=== PATIENT | female | born 1945 | race Caucasian/White ===

== ENCOUNTER 2016-09-21 09:10 | Emergency (ER) | payer MEDICARE, OTHER ==
[2016-09-21] MEDS ORDERED: Ondansetron INJ* 2 MG/ML VIAL IV ONE (09:16)
[2016-09-21] MEDS ORDERED: NS 0.9% 1000 ML* 1,000 ML IV ONE (09:16)
[2016-09-21] MEDS ORDERED: Morphine INJ* 4 MG/ML 1 ML SYRINGE IV ONE (09:55)
[2016-09-21 10:06] LABS: Hematocrit 45 % (35-47); Hemoglobin 15.1 g/dl (12.0-16.0); Mean Corpuscular HGB Conc 34 g/dl (31-36); Mean Corpuscular Hemoglobin 31 pg (27-31); Mean Corpuscular Volume 91 fL (80-97); Mean Platelet Volume 7 um3 (7.4-10.4); Red Blood Count 4.95 10^6/ul (4.0-5.4); Red Cell Distribution Width 14 % (10.5-15); White Blood Count 3.5 10^3/ul (3.5-10.8)
[2016-09-21 10:36] LABS: BUN/Creatinine Ratio 8.5 (8-20); C Reactive Protein 1.3 mg/L (< 5.00); Calcium 9.2 mg/dL (8.6-10.3); EGFR African American 46.8 (>60); EGFR Non-African American 36.4 (>60); Globulin 3.4 g/dL (2-4); Potassium 4.1 mmol/L (3.5-5.0); Total Bilirubin 0.9 mg/dL (0.2-1.0); Total Protein 7.4 g/dL (6.4-8.9)
[2016-09-21] MEDS ORDERED: Iodixanol* (CONTRAST) 320 MG/ML 100 ML SDV IV ONE (10:48)
[2016-09-21 11:20] LABS: Urine Bilirubin Negative (Negative); Urine Glucose Negative (Negative); Urine Nitrite Negative (Negative)
--- NOTE | 2016-09-21 12:16 | RAD ---
Indication: Abdominal pain, chest pain. Contrast: Administered 73.9 ml of VISAPAQUE 320 mgi/ml CTA of the chest was performed after IV contrast administration. CT of the abdomen and pelvis was performed after oral and IV contrast administration. Coronal and sagittal reconstructed images were obtained. The pulmonary arterial tree is well opacified. There are no filling defects present to suggest pulmonary embolus. The aorta demonstrates no evidence of aortic dissection. There is no mediastinal or hilar adenopathy. The trachea and major bronchi appear patent. Lung hood demonstrate no pleural fluid, nodules or masses. No alveolar consolidation is noted. CT of the abdomen and pelvis demonstrates liver to be normal in size. Low density lesion in the medial segment of left lobe of liver measures up to 21 mm. Additional cyst is noted in the medial segment of left lobe of liver measuring 14 mm. Gallbladder demonstrates no evidence of gallstones, pericholecystic fluid or wall thickening. No intrahepatic duct dilatation is noted. The spleen is normal in size. There is wall thickening of the antrum of the stomach. There is prominent gastroesophageal junction noted. Correlation with dysphasia and the possibility of antral gastritis should BE considered. No adrenal masses are noted. The kidneys demonstrate symmetric nephrograms without evidence of focal lesions. No retroperitoneal lymphadenopathy is noted. Splenic artery calcifications are noted. No dilated loops of bowel are noted. The colon is filled with stool. CT of the pelvis demonstrates urinary bladder to be unremarkable. No pelvic adenopathy is noted. No aneurysmal dilatation is noted. No hernias are identified. IMPRESSION: No evidence of pulmonary embolus. No evidence of aortic dissection is noted. Cysts are noted in the left lobe of liver. Wall thickening of the gastric antrum as well as the gastroesophageal junction. Possibility of esophagitis antral gastritis should BE considered.
--- NOTE | 2016-09-21 12:33 | ED ---
Fatou Palacios Edward, scribed for Urszula Olivas MD on 09/21/16 at 0933 . HPI Chest Pain - HPI Summary HPI Summary: 71 y/o female presents to ED c/o CP starting 2-3 days ago and general not feeling well for a few weeks after being dx with a UTI. The CP is located in the mid sternal region rated at a 6/10 at triage described as a squeezing pain. The pain is not aggravated with deep breaths. She also c/o diffuse ABD pain. Associated sx: N/V and a productive cough, starting after the UTI dx. Denies dysuria. PMHx lyme disease, UTI (few weeks ago), blood clots. FHx HTN. Shx appy. No previous MO's or strokes. Past medications reviewed on visit. - History of Current Complaint Chief Complaint: EDChestPainROMI Hx Obtained From: Patient Onset/Duration: Started Days Ago Timing: Constant Initial Severity: Moderate Current Severity: Moderate Pain Intensity: 6 Pain Scale Used: 0-10 Numeric Chest Pain Location: Mid Sternal Character: Pressure/Squeezing Associated Signs and Symptoms: Positive: Chest Pain, Nausea, Productive Cough, Abdominal Pain, Vomiting, Other: - Denies dysuria - Additional Pertinent History Primary Care Physician: [id number] - Allergy/Home Medications Allergies/Adverse Reactions: Allergies Allergy/AdvReac Type Severity Reaction Status Date / Time Amoxicillin Allergy Unknown Unknown Verified 06/04/15 09:48 Reaction Details Venlafaxine [From Effexor] AdvReac Intermediate Muscle Ache Verified 06/04/15 09 :49 Home Medications: Home Medications Calcium Citrate TAB* [Citracal TAB*] 200 mg PO BID 09/21/16 [History Confirmed 09/21/16] Donepezil TAB* [Aricept 5 MG TAB*] 10 mg PO QPM 09/21/16 [History Confirmed ] Esomeprazole(NF) [NexIUM(NF)] 40 mg PO DAILY 09/21/16 [History Confirmed ] Losartan TAB* [Cozaar TAB*] 50 mg PO DAILY 09/21/16 [History Confirmed 09/21/16] Pravastatin (NF) [Pravachol (NF)] 40 mg PO QPM 09/21/16 [History Confirmed 09/21] PMH/Surg Hx/FS Hx/Imm Hx Previously Healthy: No Endocrine/Hematology History: Denies: Hx Diabetes, Hx Systemic Lupus Erythematosus Cardiovascular History: Reports: Hx Hypertension Denies: Hx Congestive Heart Failure, Hx Pacemaker/ICD Respiratory History: Denies: Hx Asthma History: Denies: Hx Dialysis, Hx Renal Disease Musculoskeletal History: Reports: Hx Fibromyalgia - states "I had fibromyalgia but it went away" Denies: Hx Rheumatoid Arthritis, Hx Osteoporosis Sensory History: Denies: Hx Hearing Aid Neurological History: Reports: Hx Dementia Psychiatric History: Denies: Hx Panic Disorder - Cancer History Hx Chemotherapy: No Hx Radiation Therapy: No - Surgical History Surgery Procedure, Year, and Place: hysterectomy, appendectomy, colon resection Infectious Disease History: Denies: Traveled Outside the [place] in Last 30 Days - Family History Known Family History: Positive: Other - Father - stroke. Mother - colon CA - Social History Occupation: Retired Lives: With Family - With Alcohol Use: unknown Hx Substance Use: No Substance Use Type: Reports: None Hx Tobacco Use: Yes - ?YRS AGO Smoking Status (MU): Former Smoker Review of Systems Constitutional: Negative Eyes: Negative ENT: Negative Positive: Chest Pain Positive: Cough - Productive Positive: Abdominal Pain, Vomiting, Nausea Genitourinary: Negative Negative: dysuria Musculoskeletal: Negative Skin: Negative Neurological: Negative Psychological: Normal All Other Systems Reviewed And Are Negative: Yes Physical Exam Triage Information Reviewed: Yes Vital Signs On Initial Exam: Initial Vitals Temp Pulse Resp BP Pulse Ox 98.6 F 68 20 110/82 100 09/21/16 09:15 09/21/16 09:15 09/21/16 09:15 09/21/16 09:15 09/21/16 09:15 Vital Signs Reviewed: Yes Appearance: Positive: No Pain Distress, Ill-Appearing - Mildly Skin: Positive: Warm, Skin Color Reflects Adequate Perfusion, Dry Eyes: Positive: EOMI, SUSANA ENT: Positive: Pharynx normal, TMs normal, Other - Mucous membranes dry Neck: Positive: Supple, Nontender Respiratory/Lung Sounds: Positive: Clear to Auscultation, Breath Sounds Present. Negative: Rales, Rhonchi, Wheezes Cardiovascular: Positive: RRR, Other - No gallop. Negative: Murmur, Rub Abdomen Description: Positive: Soft, Other: - Mild epigastric pain. No rebound. Negative: Distended, Guarding Bowel Sounds: Positive: Present Musculoskeletal: Positive: Strength/ROM Intact. Negative: Edema Left, Edema Right Neurological: Positive: Sensory/Motor Intact, Alert, Oriented to Person Place, Time, CN Intact II-III Psychiatric: Positive: Affect/Mood Appropriate Diagnostics - Vital Signs Vital Signs Temp Pulse Resp BP Pulse Ox 09/21/16 09:15 98.6 F 68 20 110/82 100 - Laboratory Lab Results: Lab Results 09/21/16 09/21/16 09/21/16 Range/Units 09:55 09:55 09:55 WBC 3.5 (3.5-10.8) 10^3/ul RBC 4.95 (4.0-5.4) 10^6/ul Hgb 15.1 (12.0-16.0) g/dl Hct 45 (35-47) % MCV 91 (80-97) fL MCH 31 (27-31) pg MCHC 34 (31-36) g/dl RDW 14 (10.5-15) % Plt Count 149 L (150-450) 10^3/ul MPV 7 L (7.4-10.4) um3 Neut % (Auto) 64.6 (38-83) % Lymph % (Auto) 24.1 L (25-47) % Carbon % (Auto) 9.2 H (1-9) % Eos % (Auto) 1.4 (0-6) % Baso % (Auto) 0.7 (0-2) % Absolute Neuts (auto) 2.3 (1.5-7.7) 10^3/ul Absolute Lymphs (auto) 0.9 L (1.0-4.8) 10^3/ul Absolute Monos (auto) 0.3 (0-0.8) 10^3/ul Absolute Eos (auto) 0.1 (0-0.6) 10^3/ul Absolute Basos (auto) 0 (0-0.2) 10^3/ul Absolute Nucleated RBC 0.01 10^3/ul Nucleated RBC % 0.3 Sodium 131 L (133-145) mmol/L Potassium 4.1 (3.5-5.0) mmol/L Chloride 97 L (101-111) mmol/L Carbon Dioxide 27 (22-32) mmol/L Anion Gap 7 (2-11) mmol/L BUN 12 (6-24) mg/dL Creatinine 1.42 H (0.51-0.95) mg/dL Est GFR ( Amer) 46.8 (>60) Est GFR (Non-Af Amer) 36.4 (>60) BUN/Creatinine Ratio 8.5 (8-20) Glucose 98 (70-100) mg/dL Lactic Acid 1.1 (0.5-2.0) mmol/L Calcium 9.2 (8.6-10.3) mg/dL Magnesium 2.0 (1.9-2.7) mg/dL Total Bilirubin 0.90 (0.2-1.0) mg/dL AST 30 (13-39) U/L ALT 21 (7-52) U/L Alkaline Phosphatase 111 H (34-104) U/L Troponin I 0.00 (<0.04) ng/mL C-Reactive Protein 1.30 (< 5.00) mg/L Total Protein 7.4 (6.4-8.9) g/dL Albumin 4.0 (3.2-5.2) g/dL Globulin 3.4 (2-4) g/dL Albumin/Globulin Ratio 1.2 (1-3) Lipase 58 (11.0-82.0) U/L Urine Color Urine Appearance Urine pH (5-9) Ur Specific [place] (1.010-1.030) Urine Protein (Negative) Urine Ketones (Negative) Urine Blood (Negative) Urine Nitrate (Negative) Urine Bilirubin (Negative) Urine Urobilinogen (Negative) Ur Leukocyte Esterase (Negative) Urine Glucose (Negative) 09/21/16 Range/Units 10:08 WBC (3.5-10.8) 10^3/ul RBC (4.0-5.4) 10^6/ul Hgb (12.0-16.0) g/dl Hct (35-47) % MCV (80-97) fL MCH (27-31) pg MCHC (31-36) g/dl RDW (10.5-15) % Plt Count (150-450) 10^3/ul MPV (7.4-10.4) um3 Neut % (Auto) (38-83) % Lymph % (Auto) (25-47) % Carbon % (Auto) (1-9) % Eos % (Auto) (0-6) % Baso % (Auto) (0-2) % Absolute Neuts (auto) (1.5-7.7) 10^3/ul Absolute Lymphs (auto) (1.0-4.8) 10^3/ul Absolute Monos (auto) (0-0.8) 10^3/ul Absolute Eos (auto) (0-0.6) 10^3/ul Absolute Basos (auto) (0-0.2) 10^3/ul Absolute Nucleated RBC 10^3/ul Nucleated RBC % Sodium (133-145) mmol/L Potassium (3.5-5.0) mmol/L Chloride (101-111) mmol/L Carbon Dioxide (22-32) mmol/L Anion Gap (2-11) mmol/L BUN (6-24) mg/dL Creatinine (0.51-0.95) mg/dL Est GFR ( Amer) (>60) Est GFR (Non-Af Amer) (>60) BUN/Creatinine Ratio (8-20) Glucose (70-100) mg/dL Lactic Acid (0.5-2.0) mmol/L Calcium (8.6-10.3) mg/dL Magnesium (1.9-2.7) mg/dL Total Bilirubin (0.2-1.0) mg/dL AST (13-39) U/L ALT (7-52) U/L Alkaline Phosphatase (34-104) U/L Troponin I (<0.04) ng/mL C-Reactive Protein (< 5.00) mg/L Total Protein (6.4-8.9) g/dL Albumin (3.2-5.2) g/dL Globulin (2-4) g/dL Albumin/Globulin Ratio (1-3) Lipase (11.0-82.0) U/L Urine Color Straw Urine Appearance Clear Urine pH 7.0 (5-9) Ur Specific [place] 1.004 L (1.010-1.030) Urine Protein Negative (Negative) Urine Ketones Negative (Negative) Urine Blood Negative (Negative) Urine Nitrate Negative (Negative) Urine Bilirubin Negative (Negative) Urine Urobilinogen Negative (Negative) Ur Leukocyte Esterase Negative (Negative) Urine Glucose Negative (Negative) Result Diagrams: 09/21/16 09:55 07/31/17 09:55 Lab Statement: Any lab studies that have been ordered have been reviewed, and results considered in the medical decision making process. - CT CHEST/ABD/PEL CT CT Interpretation: Positive (See Comments) CT Interpretation Completed By: Radiologist - EKG 1 Cardiac Rate: NL EKG Rhythm: Sinus Rhythm - @ 62 bpm EKG Interpretation: 09:24 Chest Pain Course/Dx - Course Course Of Treatment: 71 yo female with dementia here with (both are poor historians) with some gagging today, seen by hospitalist here CTA shows gastritis -carafate added to her regimen and advised to give it 2 hours after eating - Diagnoses Provider Diagnoses: Gastritis - Provider Notifications Discussed Care Of Patient With: Nely Nuñez Time Discussed With Above Provider: 11:30 Instructed by Provider To: MD Will See In ED Discharge - Discharge Plan Condition: Stable Disposition: HOME Prescriptions: Sucralfate SUSP (NF) [Carafate SUSP (NF)] 1 gm PO Q6H #120 ml Patient Education Materials: Gastritis (ED) Referrals: Amy Marinelli MD [Primary Care Provider] - 3 Days (Please f/u in 2-3 days) The documentation as recorded by the Fatou salas Edward accurately reflects the service I personally performed and the decisions made by me, Urszula Olivas MD.
[2016-09-21 12:54] VITALS: BP 126/74
--- NOTE | 2016-09-21 23:02 | CONS ---
CC: Dr. Marinelli * CONSULTATION REPORT: DATE OF CONSULTATION: 09/21/16 - EMERGENCY DEPT PRIMARY CARE PROVIDER: Dr. Marinelli. CHIEF COMPLAINT: Abdominal discomfort and nausea. HISTORY OF PRESENT ILLNESS: Ms. 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 The patient herself is really unable to give any reliable history. The patient's provides bulk of the history; however, he too is a poor historian. According to the patient's , approximately 1 week ago, the patient was found to have a urinary tract infection. At that point, she was started on Bactrim DS 1 tab p.o. twice daily. Over the last 1 week, she has been having nausea and abdominal discomfort. This morning, the patient awakened from bed, she got up and felt like she was going to vomit. The patient's put a waste basket next to her, so she would have a place to vomit if needed, but she did not. He did note; however, that she was coughing up a tremendous amount of phlegm. The patient has had a decreased appetite over the last 1 week and has felt tired and weak over the last several days. PAST MEDICAL HISTORY: 1. Dementia. 2. Anxiety. 3. GERD. 4. Hypertension. 5. Hyperlipidemia. PAST SURGICAL HISTORY: 1. Sigmoid colon resection in 1991. 2. Hysterectomy. 3. Appendectomy. MEDICATIONS: 1. Prozac 40 mg p.o. daily. 2. Nexium 40 mg p.o. daily. 3. Losartan 50 mg p.o. daily. 4. Aspirin 81 mg p.o. daily. 5. Citracal 1 tab p.o. daily. 6. Bactrim DS 1 tab p.o. b.i.d. 7. Pravastatin 40 mg p.o. q.h.s. 8. Donepezil 10 mg p.o. daily. ALLERGIES: AMOXICILLIN and VENLAFAXINE. FAMILY HISTORY: Dad of CVA. Mom had colon cancer. SOCIAL HISTORY: The patient is a nonsmoker. She does not drink alcohol. She is . Her , Hiram Garcia, is her healthcare proxy. REVIEW OF SYSTEMS: The patient denies any fevers or chills. Her appetite has been poor over at least the last 1 week. She denies any chest pain to me. She has been coughing up some phlegm, but this has since resolved. She has felt nauseous. She has not had any vomiting. She does have abdominal discomfort diffusely. No further urinary tract infection symptoms. No focal weakness. No difficulty swallowing. No joint pains or muscle pains. No rashes. She has anxiety at baseline. PHYSICAL EXAM: Vital Signs: Blood pressure 121/67, pulse 67, respirations 16, temp 97.5, O2 sat 99% on room air. General: The patient is a well-developed, elderly thin female sitting in the stretcher, in no acute distress. HEENT: Pupils are equal, round, and reactive to light. Extraocular muscles are intact. Oropharynx is clear. Oral mucosa is moist. There is no submandibular, cervical , or supraclavicular adenopathy. Thyroid is not enlarged. No thyroid nodules are noted. Cardiac: Normal S1 and S2. Regular rate and rhythm. I do not appreciate any murmurs. There is no lower extremity edema. Pulmonary: Lungs are clear to auscultation bilaterally. Abdomen: Bowel sounds are present. Abdomen is soft, nondistended. She is diffusely tender to light palpation. Musculoskeletal: There is no cyanosis or clubbing in the digits. There is full active range of motion of all 4 extremities. Skin is warm and dry. There are no rashes. Neuro: Cranial nerves II through XII appear to be grossly intact. Sensation is intact to light touch throughout. Strength is 5/5 and symmetric in both upper and lower extremities bilaterally. Psych: The patient is alert. She is a poor historian. Affect appears appropriate. LABORATORY DATA/DIAGNOSTIC STUDIES: WBC 3.5, hemoglobin 15.1, hematocrit 45, and platelets 149,000. Sodium 131, potassium 4.1, chloride 97, CO2 27, BUN 12, creatinine 1.42, glucose 98. Lactic acid 1.1, calcium 9.2, magnesium 2.0, bilirubin 0.9, AST 30, ALT 21, alk phos 111. Troponin 0. CRP 1.3, albumin 4.0. Urinalysis reveals a specific gravity of 1.004 and otherwise negative. EKG reveals normal sinus rhythm without any acute ST-T wave abnormalities. CTA chest, abdomen, and pelvis, no evidence of pulmonary embolism, no evidence of aortic dissection, cysts are noted in the left lobe of the liver. There is wall thickening of the gastric antrum as well as the gastroesophageal junction. The possibility of esophagitis and antral gastritis should be considered. ASSESSMENT AND PLAN: Ms. Vera is a 71-year-old female with history of dementia, gastroesophageal reflux disease, hypertension, hyperlipidemia, and anxiety, who presents to the emergency room with complaints of nausea, abdominal discomfort, and coughing up phlegm. 1. Nausea and abdominal discomfort. My suspicion for this is that the Bactrim that the patient has been placed on for her urinary tract infection is causing these symptoms. At this point, the patient has had between 7 and 8 days of Bactrim therapy for her urinary tract infection and her urinalysis completely cleared. At this point, I have recommended the patient and her stop the Bactrim therapy. The patient likely has nausea and lack of appetite related to the Bactrim. If she does not have any improvement in her symptoms, the patient can follow up with Dr. Marinelli. The CTA of the chest, abdomen, and pelvis did question gastritis and esophagitis. The patient is already on Nexium , this should be continued. The patient is not having any signs of bleeding with a normal H and H, and no report of blood in the stool. The patient can again follow up with Dr. Marinelli for further evaluation if her symptoms do not improve after being off the Bactrim. Again, if her symptoms do not improve, a referral to GI could be considered. 2. Abdominal discomfort. The etiology of this is not completely clear. The patient has had pelvic discomfort related to her urinary tract infection; however, at this point her urinary tract infection appears to be completely treated. I do not think she needs any further workup for the abdominal discomfort at this point as the CTA of the abdomen and pelvis is essentially negative. 3. Hypertension. The patient's blood pressure is under good control. She will continue on her usual dose of losartan. 4. Depression/anxiety. She will continue on her usual dose of Prozac. 5. Hyperlipidemia. The patient will continue on her usual dose of pravastatin. 6. Dementia. The patient will continue on her usual dose of donepezil. 7. At this point, I am recommending the patient be discharged home and follow up with her primary care provider in the next couple of days if her symptoms do not improve after being off the Bactrim. TIME SPENT: 65 minutes were spent on this consultation. [id number]/CPS #: [id number] MTDD
== END 2016-09-21 12:53 | disposition home or self-care (01) ==
LOC: ED 09:10
DX: K29.70 Gastritis, unspecified, without bleeding (principal); R10.9 Unspecified abdominal pain; R07.9 Chest pain, unspecified; R11.0 Nausea; R05 Cough
CPT/HCPCS: 36415; 71275; 74177; 80053; 81003; 83605; 83690; 83735; 84484; 85025; 86140; 93005; 99283; J2405; Q9967

== ENCOUNTER 2018-02-21 14:19 | Emergency (ER) | payer MEDICARE, OTHER ==
--- NOTE | 2018-02-21 14:50 | ED ---
Neurological HPI - HPI Summary HPI Summary: A 73 y/o brought in by ambulance presents to [facility] with a chief complaint of tremors on 02/21/18. Per EMS the patient lives in a senior living and was displaying some odd behavior such as eating without utensils or unable to dance. The patient has a Hx of dementia and therefore she will be a LEVEL 5 CAVEAT. She states that she is not sure why she is in the ED. She rates her pain as 0/10. - History of Current Complaint Chief Complaint: EDAltMentalStatus Stated Complaint: TREMORS/NOT ACTING NORMAL Time Seen by Provider: 02/21/18 14:24 Hx Obtained From: Patient, EMS Hx From Patient Unobtainable Due To: Dementia Onset/Duration: Sudden Onset, Started hours ago, Still Present Timing: Constant Onset Severity: Mild Current Severity: Mild Pain Intensity: 0 Pain Scale Used: 0-10 Numeric Aggravating: Nothing Alleviating: Nothing Associated Signs and Symptoms: Positive: Confusion - Additional Pertinent History Primary Care Physician: MEGHA - Allergy/Home Medications Allergies/Adverse Reactions: Allergies Allergy/AdvReac Type Severity Reaction Status Date / Time venlafaxine [From Effexor] Allergy Intermediate Muscle Ache Verified 02/21/18 15 :28 amoxicillin Allergy Unknown Verified 02/21/18 15:28 Reaction Details PMH/Surg Hx/FS Hx/Imm Hx Endocrine/Hematology History: Denies: Hx Diabetes, Hx Systemic Lupus Erythematosus Cardiovascular History: Reports: Hx Hypertension Denies: Hx Congestive Heart Failure, Hx Pacemaker/ICD Respiratory History: Denies: Hx Asthma History: Denies: Hx Dialysis, Hx Renal Disease Musculoskeletal History: Reports: Hx Fibromyalgia - states "I had fibromyalgia but it went away" Denies: Hx Rheumatoid Arthritis, Hx Osteoporosis Sensory History: Denies: Hx Hearing Aid Neurological History: Reports: Hx Dementia Psychiatric History: Denies: Hx Panic Disorder - Cancer History Hx Chemotherapy: No Hx Radiation Therapy: No - Surgical History Surgery Procedure, Year, and Place: hysterectomy, appendectomy, colon resection Infectious Disease History: No Infectious Disease History: Denies: Traveled Outside the [place] in Last 30 Days - Family History Known Family History: Positive: Other - Father - stroke. Mother - colon CA - Social History Alcohol Use: unknown Alcohol Amount: 2 drinks a night -- not in the last 2 weeks Hx Substance Use: No Substance Use Type: Reports: None Hx Tobacco Use: Yes - ?YRS AGO Smoking Status (MU): Former Smoker Review of Systems - ROS Summary Review of Systems Summary: Patient is a level 5 caveat due to her dementia. Negative: Fever Neurological: Other - positive: confused, tremor All Other Systems Reviewed And Are Negative: No Physical Exam - Summary Physical Exam Summary: Appearance: The patient is well-nourished in no acute distress and in no acute pain. Skin: The skin is warm and dry and skin color reflects adequate perfusion. HEENT: The head is normocephalic and atraumatic. The pupils are equal and reactive. The conjunctivae are clear and without drainage. Nares are patent and without drainage. Mouth reveals moist mucous membranes and the throat is without erythema and exudate. The external ears are intact. The ear canals are patent and without drainage. The tympanic membranes are intact. Neck: The neck is supple with full range of motion and non-tender. There are no carotid bruits. There is no neck vein distension. Respiratory: Chest is non-tender. Lungs are clear to auscultation and breath sounds are symmetrical and equal. Cardiovascular: Heart is regular rate and rhythm. There is no murmur or rub auscultated. There is no peripheral edema and pulses are symmetrical and equal. Abdomen: The abdomen is soft and non-tender. There are normal bowel sounds heard in all four quadrants and there is no organomegaly palpated. Musculoskeletal: There is no back tenderness noted. Extremities are non-tender with full range of motion. There is good capillary refill. There is no peripheral edema or calf tenderness elicited. Neurological: Patient is presently demented and confused. Tension tremor. Psychiatric: The patient has an appropriate affect and does not exhibit any anxiety or depression. Triage Information Reviewed: Yes Vital Signs On Initial Exam: Initial Vitals Temp Pulse Resp BP Pulse Ox 97.8 F 71 19 130/60 96 02/21/18 14:23 02/21/18 14:23 02/21/18 14:23 02/21/18 14:23 02/21/18 14:23 Vital Signs Reviewed: Yes Diagnostics - Vital Signs Vital Signs Temp Pulse Resp BP Pulse Ox 02/21/18 14:35 100.1 F 02/21/18 14:23 97.8 F 71 19 130/60 96 - Laboratory Result Diagrams: 02/21/18 14:57 02/21/18 14:57 Lab Statement: Any lab studies that have been ordered have been reviewed, and results considered in the medical decision making process. - EKG 14:45 Cardiac Rate: NL - 64 bpm EKG Rhythm: Sinus Rhythm Summary of EKG Findings: NSR at 64 bpm, normal ST, no ectopy, no STEMI. Course/Dx - Course Course Of Treatment: Ms. Vera was sent from the senior living with a concern that she was tremulous. She was nontoxic in appearance with normal vital signs here. She did seem to have some intention tremor which does not seem likely that it's brand-new. She did not have a resting tremor. She was noted to have a UTI on urinalysis but otherwise her labs are normal. I will treat the UTI and recommended follow-up with the PCP. - Diagnoses Provider Diagnoses: UTI (urinary tract infection) Discharge - Sign-Out/Discharge Documenting (check all that apply): Patient Departure - DC - Discharge Plan Condition: Stable Disposition: HOME Prescriptions: Ciprofloxacin TAB* [Cipro Tab*] 500 mg PO BID #10 tab Ciprofloxacin TAB* [Cipro Tab*] 500 mg PO BID #10 tab Patient Education Materials: Urinary Tract Infection in Women (ED) Referrals: Amy Marinelli MD [Primary Care Provider] - (2-3 days.) Additional Instructions: Follow up with your PCP in 2-3 days. Return to the ED if you experience any new or worsening symptoms. - Billing Disposition and Condition Condition: STABLE Disposition: Home - Attestation Statements Document Initiated by Germane: Yes Documenting Scribe: Agustin Ross Provider For Whom Hayley is Documenting (Include Credential): Maxwell Francisco MD Scribe Attestation: IAgustin, scribed for Maxwell Francisco MD on 02/21/18 at 2110. Scribe Documentation Reviewed: Yes Provider Attestation: The documentation as recorded by the Agustin salas accurately reflects the service I personally performed and the decisions made by me, Maxwell Francisco MD Status of Scribe Document: Viewed
[2018-02-21 15:09] LABS: Urine Appearance Cloudy; Urine Bacteria Absent (Absent); Urine Bilirubin Negative (Negative); Urine Blood 2+ (Negative); Urine Color Yellow; Urine Glucose Negative (Negative); Urine Ketones Negative (Negative); Urine Nitrite Positive (Negative); Urine Protein Negative (Negative); Urine Red Blood Cell 1+(3-5/hpf) (Absent); Urine Specific Gravity 1.017 (1.010-1.030); Urine Urobilinogen Negative (Negative); Urine White Blood Cell 3+(>20/hpf) (Absent)
[2018-02-21 15:12] LABS: ABS Basophils 0 10^3/ul (0-0.2); ABS Eosinophils 0.1 10^3/ul (0-0.6); ABS Lymphocytes 1.5 10^3/ul (1.0-4.8); ABS Monocytes 0.7 10^3/ul (0-0.8); ABS Neutrophils 3.9 10^3/ul (1.5-7.7); ABS Nucleated RBC 0 10^3/ul; Eosinophil % 1.6 %; Hematocrit 38 % (35-47); Mean Corpuscular HGB Conc 34 g/dl (31-36); Mean Corpuscular Hemoglobin 28 pg (27-31); Mean Corpuscular Volume 83 fL (80-97); Mean Platelet Volume 7.1 fL (7.4-10.4); Nucleated Red Blood Cells % 0.1; Platelet Count 158 10^3/ul (150-450); Red Blood Count 4.61 10^6/ul (4.00-5.40); Red Cell Distribution Width 17 % (10.5-15); White Blood Count 6.2 10^3/ul (3.5-10.8)
[2018-02-21 15:18] LABS: INR 0.92 (0.77-1.02)
[2018-02-21 15:51] LABS: Albumin 3.4 g/dL (3.2-5.2); Albumin/Globulin Ratio 1.2 (1-3); BUN/Creatinine Ratio 15.7 (8-20); C Reactive Protein 1.16 mg/L (<8.01); Calcium 8.8 mg/dL (8.6-10.3); EGFR Non-African American 46.1 (>60); Globulin 2.9 g/dL (2-4); Magnesium 2.2 mg/dL (1.9-2.7); Potassium 4.2 mmol/L (3.5-5.0); Total Bilirubin 0.7 mg/dL (0.2-1.0); Total Protein 6.3 g/dL (6.4-8.9)
[2018-02-21 16:14] LABS: TSH (Thyroid Stimulating Horm) 4.02 mcIU/mL (0.34-5.60)
[2018-02-21 17:37] VITALS: BP 137/69
[2018-02-21] MEDS ORDERED: Ciprofloxacin TAB* 500 MG PO ONE (17:55)
--- NOTE | 2018-02-23 05:42 | PN ---
Progress Note - Progress Note Date of Service: 02/23/18 Note: urine culture grew E coli 100,000. patient placed on cipro will wait for final culture for sensitivities.
--- NOTE | 2018-02-24 05:58 | PN ---
Progress Note - Progress Note Date of Service: 02/24/18 Note: Patient placed on Cipro which final culture is sensitive to. No further action required
== END 2018-02-21 17:52 | disposition home or self-care (01) ==
LOC: ED 14:19
DX: N39.0 Urinary tract infection, site not specified (principal); B96.20 Unspecified Escherichia coli [E. coli] as the cause of diseases classified elsewhere; R25.1 Tremor, unspecified; R41.0 Disorientation, unspecified; Z88.0 Allergy status to penicillin; Z88.8 Allergy status to other drugs, medicaments and biological substances; Z87.891 Personal history of nicotine dependence
CPT/HCPCS: 36415; 80053; 81003; 81015; 83605; 83735; 84443; 84484; 85025; 85610; 86140; 87077; 87086; 87186; 93005; 99283; A9270-GY

== ENCOUNTER 2018-05-10 11:18 | Emergency (ER) | payer MEDICARE, OTHER ==
--- NOTE | 2018-05-10 11:35 | ED ---
HPI Febrile Illness - HPI Summary HPI Summary: LEVEL 5 CAVEAT: HPI LIMITED DUE TO PATIENT CONDITION, DEMENTIA. A 73 y/o F presents to ED brought in by ambulance for suspected URI onset [employer]. Associated sx: cough. Patient denies rhinorrhea, abd pain, vomiting. She says her breathing is OK. - History of Current Complaint Time Seen by Provider: 05/10/18 11:24 Hx Obtained From: Patient, EMS Hx From Patient Unobtainable Due To: Dementia Onset/Duration: Still Present Timing: Constant Associated Signs and Symptoms: Cough, Other: - neg: rhinorrhea, abd pain, vomiting - Additional Pertinent History Primary Care Physician: MEGHA - Allergy/Home Medications Allergies/Adverse Reactions: Allergies Allergy/AdvReac Type Severity Reaction Status Date / Time venlafaxine [From Effexor] Allergy Intermediate Muscle Ache Verified 02/21/18 15 :28 amoxicillin Allergy Unknown Verified 02/21/18 15:28 Reaction Details Home Medications: Home Medications Acetaminophen [Acetaminophen Extra Strength] 500 mg PO Q6HR PRN 05/10/18 [ History Confirmed 05/10/18] Cyanocobalamin TAB* [Vitamin B12 TAB*] 1,000 mcg PO DAILY 05/10/18 [History Confirmed 05/10/18] Ergocalciferol CAP* [Drisdol CAP*] 50,000 unit PO MONTHLY 05/10/18 [History Confirmed 05/10/18] Sertraline* [Zoloft*] 25 mg PO DAILY 05/10/18 [History Confirmed 05/10/18] guaiFENesin LIQ* [Robitussin*] 10 ml PO Q8HR PRN 05/10/18 [History Confirmed ] PMH/Surg Hx/FS Hx/Imm Hx Previously Healthy: No Endocrine/Hematology History: Denies: Hx Diabetes, Hx Systemic Lupus Erythematosus Cardiovascular History: Reports: Hx Hypertension Denies: Hx Congestive Heart Failure, Hx Pacemaker/ICD Respiratory History: Denies: Hx Asthma History: Denies: Hx Dialysis, Hx Renal Disease Musculoskeletal History: Reports: Hx Fibromyalgia - states "I had fibromyalgia but it went away" Denies: Hx Rheumatoid Arthritis, Hx Osteoporosis Sensory History: Denies: Hx Hearing Aid Neurological History: Reports: Hx Dementia Psychiatric History: Denies: Hx Panic Disorder - Cancer History Hx Chemotherapy: No Hx Radiation Therapy: No - Surgical History Surgery Procedure, Year, and Place: hysterectomy, appendectomy, colon resection - Family History Known Family History: Positive: Other - Father - stroke. Mother - colon CA - Social History Occupation: Retired Lives: With Family Alcohol Use: unknown Alcohol Amount: 2 drinks a night -- not in the last 2 weeks Hx Substance Use: No Substance Use Type: Reports: None Hx Tobacco Use: Yes - ?YRS AGO Smoking Status (MU): Former Smoker Review of Systems - ROS Summary Review of Systems Summary: LEVEL 5 CAVEAT: ROS LIMITED DUE TO PT CONDITION: DEMENTIA Negative: Nasal Discharge Positive: Cough Negative: Abdominal Pain, Vomiting All Other Systems Reviewed And Are Negative: No Physical Exam - Summary Physical Exam Summary: Constitutional: Well-developed, Well-nourished, Alert. (-) Distressed Skin: Warm, Dry HENT: Normocephalic; Atraumatic Eyes: Conjunctiva normal Neck: Musculoskeletal ROM normal neck. (-) JVD, (-) Stridor, (-) Tracheal deviation Cardio: Rhythm regular, rate normal, Heart sounds normal; Intact distal pulses; The pedal pulses are 2+ and symmetric. Radial pulses are 2+ and symmetric. (-) Murmur Pulmonary/Chest wall: Effort normal. (-) Respiratory distress, (-) Wheezes, (-) Rales Abd: Soft, (-) tenderness, (-) Distension, (-) Guarding, (-) Rebound Musculoskeletal: Trace pitting edema, worse at L ankle Lymph: (-) Cervical adenopathy Neuro: Alert, Oriented x3 Psych: Mood and affect Normal Triage Information Reviewed: Yes Vital Signs Reviewed: Yes Diagnostics - Laboratory Result Diagrams: 05/10/18 13:57 05/10/18 13:57 Lab Statement: Any lab studies that have been ordered have been reviewed, and results considered in the medical decision making process. - Radiology CXR Radiology Interpretation Completed By: Radiologist Summary of Radiographic Findings: IMPRESSION: NO ACTIVE CARDIOPULMONARY DISEASE IS NOTED. ED provider has reviewed this report. Re-Evaluation - Re-Evaluation 1 Re-Evaluation Time: 16:29 Change: Improved Course/Dx - Course Course Of Treatment: Pt is a 73 y/o F with dementia brought in by ambulance for suspected URI. Associated sx: cough. Patient denies rhinorrhea, abd pain, vomiting. She says her breathing is OK. Lab work shows RDW: 17, Plt Count: 138 , APTT: 25.3. Chemistry shows BUN/C ratio: 24.4, glucose: 114, Ca: 8.2, total protein: 6.3. ABG O2 sat: 99.5. Rapid flu in A and B are negative. CXR shows no active cardiopulmonary disease. Pt will be discharged home. - Diagnoses Provider Diagnoses: URI (upper respiratory infection) Discharge - Sign-Out/Discharge Documenting (check all that apply): Patient Departure - D/C Patient Received Moderate/Deep Sedation with Procedure: No - Discharge Plan Condition: Stable Disposition: HOME Patient Education Materials: Upper Respiratory Infection (ED) Print Language: FAROESE Referrals: Amy Marinelli MD [Medical Doctor] - - Attestation Statements Document Initiated by Scribe: Yes Documenting Scribe: Varsha Kumar Provider For Whom Scribe is Documenting (Include Credential): Dr. Katerina Gilliland MD Scribe Attestation: I, Varsha Kumar, scribed for Dr. Katerina Gilliland MD on at 1649. Status of Scribe Document: Ready
[2018-05-10 13:30] LABS: Influenza A Molecular NEGATIVE (Negative); Influenza B Molecular NEGATIVE (Negative)
[2018-05-10 14:16] LABS: ABS Basophils 0 10^3/ul (0-0.2); ABS Eosinophils 0.1 10^3/ul (0-0.6); ABS Lymphocytes 1.3 10^3/ul (1.0-4.8); ABS Monocytes 0.6 10^3/ul (0-0.8); ABS Neutrophils 5.2 10^3/ul (1.5-7.7); ABS Nucleated RBC 0 10^3/ul; Eosinophil % 1.2 %; Hematocrit 37 % (33-41); Hemoglobin 12.3 g/dL (12.0-16.0); Lymphocyte % 17.9 %; Mean Corpuscular HGB Conc 33 g/dL (31-36); Mean Corpuscular Hemoglobin 29 pg (27-31); Mean Corpuscular Volume 85 fL (80-97); Mean Platelet Volume 7.6 fL (7.4-10.4); Nucleated Red Blood Cells % 0; Platelet Count 138 10^3/uL (150-450); Red Cell Distribution Width 17 % (10.5-15); White Blood Count 7.2 10^3/uL (3.5-10.8)
[2018-05-10 14:24] LABS: Activated Partial Thrombo Time 25.3 seconds (26.0-36.3); INR 0.98 (0.77-1.02)
[2018-05-10 14:35] LABS: Troponin I 0.01 ng/mL (<0.04)
[2018-05-10 15:04] LABS: Albumin 3.4 g/dL (3.2-5.2); Albumin/Globulin Ratio 1.2 (1-3); BUN/Creatinine Ratio 24.4 (8-20); Calcium 8.2 mg/dL (8.6-10.3); EGFR African American 87.4 (>60); EGFR Non-African American 72.2 (>60); Globulin 2.9 g/dL (2-4); Potassium 3.7 mmol/L (3.5-5.0); Total Bilirubin 0.9 mg/dL (0.2-1.0); Total Protein 6.3 g/dL (6.4-8.9)
[2018-05-10 16:58] VITALS: BP 132/75
== END 2018-05-10 16:57 | disposition home or self-care (01) ==
LOC: ED 11:18
DX: J06.9 Acute upper respiratory infection, unspecified (principal); R05 Cough; R10.9 Unspecified abdominal pain; R11.10 Vomiting, unspecified; Z88.0 Allergy status to penicillin; I10 Essential (primary) hypertension; Z87.891 Personal history of nicotine dependence
CPT/HCPCS: 36415; 71045; 80053; 82803; 83605; 83880; 84484; 85025; 85610; 85730; 87040; 99283

== ENCOUNTER 2019-04-26 22:40 | Emergency (ER) | payer MEDICARE, OTHER ==
--- NOTE | 2019-04-26 23:21 | ED ---
Complex/Multi-Sys Presentation - HPI Summary HPI Summary: 74-year-old female with a significant past medical history of hypertension, dementia presents to the emergency department today via EMS for a fever of 101.6 F. Patient was given Tylenol 500 mg for her fever at approximately 1745. Patient is pleasantly demented and an adequate history is difficult to obtain. Patient has no complaints at this time and is unsure why she is in the emergency department. Patient states the people at the skilled nursing sent her against her will. Patient denies fever, chest pain, abdominal pain, shortness of breath, rash, pain with urination. - History Of Current Complaint Chief Complaint: EDFever Time Seen by Provider: 04/26/19 23:07 Hx Obtained From: Patient Hx From Patient Unobtainable Due To: Dementia - Allergies/Home Medications Allergies/Adverse Reactions: Allergies Allergy/AdvReac Type Severity Reaction Status Date / Time venlafaxine [From Effexor] Allergy Intermediate Muscle Ache Verified 02/21/18 15 :28 amoxicillin Allergy Unknown Verified 02/21/18 15:28 Reaction Details Home Medications: Home Medications Aspirin 81 mg CHEW TAB* 81 mg PO DAILY tab.chew 07/16/15 [Rx Confirmed 05/10/18 ] Donepezil TAB* [Aricept 5 MG TAB*] 10 mg PO QPM 09/21/16 [History Confirmed ] Losartan TAB* [Cozaar TAB*] 50 mg PO DAILY 09/21/16 [History Confirmed 05/10/18] Acetaminophen [Acetaminophen Extra Strength] 500 mg PO Q6HR PRN 05/10/18 [ History Confirmed 05/10/18] Cyanocobalamin TAB* [Vitamin B12 TAB*] 1,000 mcg PO DAILY 05/10/18 [History Confirmed 05/10/18] Ergocalciferol CAP* [Drisdol CAP*] 50,000 unit PO MONTHLY 05/10/18 [History Confirmed 05/10/18] Sertraline* [Zoloft*] 25 mg PO DAILY 05/10/18 [History Confirmed 05/10/18] guaiFENesin 100 mg/5 ml LIQ [Robitussin*] 10 ml PO Q8HR PRN 05/10/18 [History Confirmed 05/10/18] PMH/Surg Hx/FS Hx/Imm Hx Endocrine/Hematology History: Denies: Hx Diabetes, Hx Systemic Lupus Erythematosus Cardiovascular History: Reports: Hx Hypertension Denies: Hx Congestive Heart Failure, Hx Pacemaker/ICD Respiratory History: Denies: Hx Asthma History: Denies: Hx Dialysis, Hx Renal Disease Musculoskeletal History: Reports: Hx Fibromyalgia - states "I had fibromyalgia but it went away" Denies: Hx Rheumatoid Arthritis, Hx Osteoporosis Sensory History: Denies: Hx Hearing Aid Neurological History: Reports: Hx Dementia Psychiatric History: Denies: Hx Panic Disorder - Cancer History Hx Chemotherapy: No Hx Radiation Therapy: No - Surgical History Surgery Procedure, Year, and Place: hysterectomy, appendectomy, colon resection Infectious Disease History: Unable to Obtain/Confirm Infectious Disease History: Denies: Traveled Outside the [place] in Last 30 Days - Family History Known Family History: Positive: Other - Father - stroke. Mother - colon CA - Social History Alcohol Use: None Alcohol Amount: 2 drinks a night -- not in the last 2 weeks Hx Substance Use: No Substance Use Type: Reports: None Hx Tobacco Use: Yes - ?YRS AGO Smoking Status (MU): Former Smoker Review of Systems - ROS Summary Review of Systems Summary: ROS is difficult to obtain due to patient's dementia Negative: Fever Negative: Rash All Other Systems Reviewed And Are Negative: Yes Physical Exam Triage Information Reviewed: Yes Vital Signs On Initial Exam: Initial Vitals Temp Pulse Resp BP Pulse Ox 97.6 F 64 20 136/68 95 04/26/19 23:00 04/26/19 23:00 04/26/19 23:00 04/26/19 23:00 04/26/19 23:00 Vital Signs Reviewed: Yes Completion Of Physical Exam Limited Due To: Dementia Appearance: Positive: Well-Appearing, No Pain Distress, Well-Nourished Skin: Positive: Warm, Skin Color Reflects Adequate Perfusion Procedures - Sedation Patient Received Moderate/Deep Sedation with Procedure: No Diagnostics - Vital Signs Vital Signs Temp Pulse Resp BP Pulse Ox 04/26/19 23:00 97.6 F 64 20 136/68 95 - Laboratory Result Diagrams: 04/26/19 23:55 04/26/19 23:55 Lab Statement: Any lab studies that have been ordered have been reviewed, and results considered in the medical decision making process. Complex Multi-Symp Course/Dx Course Of Treatment: Patient was evaluated in emergency department today for possible fever. Vitals noted. Patient afebrile. Chest x-ray negative for pneumonia. Laboratory studies show no evidence of acute pathology. No leukocytosis, or electrolyte abnormality. Urinalysis pending. Patient signed out to Dr. Acosta at 0230 on 04/27/2019. - Diagnoses Provider Diagnoses: Fever Discharge ED - Sign-Out/Discharge Documenting (check all that apply): Patient Departure, Sign-Out Patient Signing out patient TO: Patsy Acosta Receiving patient FROM: Bandar Suarez - Discharge Plan Condition: Stable Disposition: HOME Patient Education Materials: Fever in Adults (ED) Referrals: Loyda Gutierrez MD [Primary Care Provider] - 3 Days Additional Instructions: Follow up with your primary care provider in 2-3 days. Return to the emergency department for any new or worsening symptoms. - Billing Disposition and Condition Condition: STABLE Disposition: Home
[2019-04-27 00:04] LABS: ABS Basophils 0.1 10^3/ul (0-0.2); ABS Eosinophils 0.1 10^3/ul (0-0.6); ABS Lymphocytes 1.8 10^3/ul (1.0-4.8); ABS Monocytes 0.7 10^3/ul (0-0.8); ABS Neutrophils 4.3 10^3/ul (1.5-7.7); Eosinophil % 1.9 %; Hematocrit 36 % (35-47); Hemoglobin 12.5 g/dL (12.0-16.0); Lymphocyte % 25.7 %; Mean Corpuscular HGB Conc 34 g/dL (31-36); Mean Corpuscular Hemoglobin 30 pg (27-31); Mean Corpuscular Volume 87 fL (80-97); Mean Platelet Volume 7.4 fL (7.4-10.4); Platelet Count 187 10^3/uL (150-450); Red Blood Count 4.17 10^6 /uL (3.70-4.87); Red Cell Distribution Width 16 % (10-15); White Blood Count 6.9 10^3/uL (3.5-10.8)
[2019-04-27 00:23] LABS: Albumin 3.3 g/dL (3.2-5.2); Albumin/Globulin Ratio 1.1 (1-3); BUN/Creatinine Ratio 12.9 (8-20); C Reactive Protein 2.3 mg/L (<8.01); Calcium 8.8 mg/dL (8.6-10.3); EGFR African American 71.1 (>60); EGFR Non-African American 58.8 (>60); Globulin 2.9 g/dL (2-4); Total Bilirubin 0.7 mg/dL (0.2-1.0); Total Protein 6.2 g/dL (6.4-8.9)
[2019-04-27 04:49] LABS: Urine Appearance Cloudy; Urine Bilirubin Negative (Negative); Urine Blood 2+ (Negative); Urine Color Straw; Urine Glucose Negative (Negative); Urine Ketones Negative (Negative); Urine Nitrite Negative (Negative); Urine Protein Negative (Negative); Urine Specific Gravity 1.005 (1.010-1.030); Urine Urobilinogen Negative (Negative)
[2019-04-27 04:51] LABS: Urine Bacteria Absent (Absent); Urine Red Blood Cell Trace(0-2/hpf) (Absent); Urine Squamous Epithelial Cell Present (Absent); Urine White Blood Cell 1+(6-10/hpf) (Absent)
[2019-04-27 06:08] VITALS: BP 120/59
--- NOTE | 2019-04-27 06:18 | ED ---
Progress - Progress Note Progress Note: The patient is a sign-out from HALEY Ross, to Dr. Patsy Acosta MD, at change of shift at 0230 on 04/27/19, pending urinalysis and disposition. UA reveals 2+ blood, trace leukocyte esterase, 1+ WBCs, and presence of squamous epithelial cells. Patient has been afebrile her entire stay here. She is safe for discharge. Course/Dx - Diagnoses Provider Diagnoses: Fever Discharge ED - Sign-Out/Discharge Documenting (check all that apply): Patient Departure - discharge, Receiving Sign-Out Receiving patient FROM: Bandar Suarez - Patient is a sign-out from HALEY Ross, at change of shift at 0230 on 04/27/19, pending UA and disposition. - Discharge Plan Condition: Stable Disposition: HOME Patient Education Materials: Fever in Adults (ED) Referrals: Loyda Gutierrez MD [Primary Care Provider] - 3 Days Additional Instructions: Follow up with your primary care provider in 2-3 days. Return to the emergency department for any new or worsening symptoms. - Billing Disposition and Condition Condition: STABLE Disposition: Home - Attestation Statements Document Initiated by Troyibe: Yes Documenting Scribe: Afia Chu Provider For Whom Hayley is Documenting (Include Credential): Patsy Acosta MD Scribe Attestation: Afia Palacios, troyibed for Patsy Acosta MD on 04/27/19 at 0709. Scribe Documentation Reviewed: Yes Provider Attestation: The documentation as recorded by the Afia salas accurately reflects the service I personally performed and the decisions made by me, Patsy Acosta MD Status of Scribe Document: Viewed Procedures - Sedation Patient Received Moderate/Deep Sedation with Procedure: No
--- NOTE | 2019-05-01 08:01 | ED ---
Imaging and Labs Follow Up Follow Up Type: Labs/Cultures Labs/Culture Result: Urine culture final grew e. coli many colony count Patient Communication/Plan: Called [facility] - spoke with RN -sent through [facility] for keflex four times daily x 5 days - suspension d/t fever Patient Communication/Plan: Faxed information as well Provider Diagnoses: Fever
== END 2019-04-27 06:13 | disposition home or self-care (01) ==
LOC: ED 22:40
DX: R50.9 Fever, unspecified (principal); I10 Essential (primary) hypertension; Z87.891 Personal history of nicotine dependence; Z88.0 Allergy status to penicillin; Z79.82 Long term (current) use of aspirin; Z90.710 Acquired absence of both cervix and uterus; Z66 Do not resuscitate
CPT/HCPCS: 36415; 71046; 80053; 81003; 81015; 83605; 85025; 86140; 87077; 87086; 87186; 99284

== ENCOUNTER 2019-08-13 09:13 | Inpatient (IN) ==
[2019-08-13 13:40] LABS: INR 1.16 (0.82-1.09)
[2019-08-13 13:45] LABS: Hematocrit 38 % (35-47); Hemoglobin 12.5 g/dL (12.0-16.0); Mean Corpuscular HGB Conc 33 g/dL (31-36); Mean Corpuscular Hemoglobin 30 pg (27-31); Mean Corpuscular Volume 89 fL (80-97); Red Blood Count 4.23 10^6 /uL (3.70-4.87); Red Cell Distribution Width 17 % (10-15); White Blood Count 10.1 10^3/uL (3.5-10.8)
[2019-08-13 14:09] LABS: Albumin 3.7 g/dL (3.2-5.2); Potassium 4.7 mmol/L (3.5-5.0); Total Bilirubin 1.7 mg/dL (0.2-1.0)
[2019-08-13 14:15] LABS: Albumin/Globulin Ratio 1.2 (1-3); BUN/Creatinine Ratio 17.8 (8-20); EGFR African American 73.9 (>60); Globulin 3.1 g/dL (2-4); Total Protein 6.8 g/dL (6.4-8.9)
[2019-08-13 14:33] LABS: ABS Eosinophils 0.1 10^3/ul (0-0.6); ABS Lymphocytes 1.5 10^3/ul (1.0-4.8); ABS Monocytes 0.9 10^3/ul (0-0.8); Eosinophil % 0.7 %; Lymphocyte % 14.5 %; Mean Platelet Volume 9.1 fL (7.4-10.4); Nucleated Red Blood Cells % 0.1; Platelet Count 91 10^3/uL (150-450)
[2019-08-13] MEDS ORDERED: Enoxaparin 80 MG/0.8 ML SYR(*) SUBCUT SCH (15:00)
[2019-08-13] MEDS ORDERED: Haloperidol 5 mg/ml SDV IV/IM 5 MG/ML AMP IM PRN ×2 (18:19→18:21)
[2019-08-13] MEDS ORDERED: Magnesium Sulfate 2 gm BAG 2 GM/50 ML BAG IVPB ONE (21:40)
[2019-08-14 17:05] LABS: Troponin I 0.03 ng/mL (<0.03)
[2019-08-14 17:11] LABS: Anion Gap 8 mmol/L (2-11); BUN/Creatinine Ratio 17.7 (8-20); Blood Urea Nitrogen 17 mg/dL (6-24); CO2 Carbon Dioxide 23 mmol/L (22-32); Calcium 8.5 mg/dL (8.6-10.3); Chloride 109 mmol/L (101-111); EGFR African American 68.6 (>60); EGFR Non-African American 56.7 (>60); Glucose 113 mg/dL (70-100); Magnesium 2.5 mg/dL (1.9-2.7); Potassium 3.9 mmol/L (3.5-5.0); Sodium 140 mmol/L (135-145)
[2019-08-14 19:31] LABS: Troponin I 0.03 ng/mL (<0.03)
[2019-08-15 09:23] LABS: TSH (Thyroid Stimulating Horm) 2.11 mcIU/mL (0.34-5.60)
[2019-08-16 07:06] LABS: ABS Eosinophils 0.2 10^3/ul (0-0.6); ABS Lymphocytes 1.3 10^3/ul (1.0-4.8); ABS Monocytes 0.6 10^3/ul (0-0.8); Eosinophil % 2.9 %; Hematocrit 35 % (35-47); Hemoglobin 11.6 g/dL (12.0-16.0); Mean Corpuscular HGB Conc 33 g/dL (31-36); Mean Corpuscular Hemoglobin 29 pg (27-31); Mean Corpuscular Volume 89 fL (80-97); Mean Platelet Volume 8.9 fL (7.4-10.4); Nucleated Red Blood Cells % 0.1; Platelet Count 191 10^3/uL (150-450); Red Blood Count 3.97 10^6 /uL (3.70-4.87); Red Cell Distribution Width 17 % (10-15); White Blood Count 7.2 10^3/uL (3.5-10.8)
[2019-08-16 10:10] VITALS: BP 130/59
== END 2019-08-16 10:30 | DRG 300 ==
LOC: MED 09:13 → ED 09:13 → OBSVTOIN 17:45 → MED 17:48
PROVIDERS: ADMIT Nurse Practitioner Adult Health; ATTEND Internal Medicine